=== PATIENT | female | born 1980 | race African-American/Black ===

== ENCOUNTER 2024-04-28 21:44 | Emergency (ER) | payer SELFPAY ==
[~2024-04-28] VITALS: Ht 162.6 cm; Wt 86.2 kg
[2024-04-28 22:23] VITALS: TEMP 98
[2024-04-28] MEDS ORDERED: IBUPROFEN 400 MG TABLET ONE (22:37)
[2024-04-28] MEDS: IBUPROFEN 400 MG TABLET PO ONE (22:41)
[2024-04-28] MEDS ORDERED: IBUP-1957 PO (23:34)
[2024-04-28 23:40] VITALS: BP 138/72; O2SAT 100
== END 2024-04-28 23:41 | disposition home or self-care (01) ==
LOC: ER 21:47
DX: S13.4XXA Sprain of ligaments of cervical spine, initial encounter (principal); S00.83XA Contusion of other part of head, initial encounter; M25.572 Pain in left ankle and joints of left foot; M54.9 Dorsalgia, unspecified; G44.309 Post-traumatic headache, unspecified, not intractable; J45.909 Unspecified asthma, uncomplicated; Z79.1 Long term (current) use of non-steroidal anti-inflammatories (NSAID); V43.52XA Car driver injured in collision with other type car in traffic accident, initial encounter; Y93.89 Activity, other specified; Y92.488 Other paved roadways as the place of occurrence of the external cause; Y99.8 Other external cause status
CPT/HCPCS: 70450-TC; 72125-TC; 73610-TC